=== PATIENT | male | born 1935 | race Caucasian/White ===

== ENCOUNTER 2020-01-23 07:14 | Outpatient (REF) | payer MEDICARE, SELFPAY ==
[2020-01-23 07:53] LABS: MANUAL DIFF FLAG NO
[2020-01-23 07:55] LABS: Basophils Absolute Auto 0.1 X10*3/uL (0.0-0.2); Eosinophils Absolute Auto 0.3 X10*3/uL (0.0-0.4); Hematocrit 37.2 % (42-52); Hemoglobin 12.2 g/dl (14.0-18.0); Imm Gran Abs Auto 0.04 X10*3/uL (0.00-0.03); Imm Gran Pct Auto 0.5 % (0.0-0.4); Lymphocytes Absolute Auto 2.7 X10*3/uL (1.2-4.9); Lymphocytes Percent Auto 35.4 % (20-40); Mean Corpuscular HGB Conc 32.8 g/dl (31.0-36.0); Mean Corpuscular Hemoglobin 29.8 pg (27.0-33.0); Mean Platelet Volume 9.2 fL (9.4-12.4); Monocytes Absolute Auto 0.5 X10*3/uL (0.1-1.2); Monocytes Percent Auto 6.7 % (2-11); Neutrophils Percent Auto 52.4 % (45-73); Platelet Count 255 X10*3/uL (160-400); Red Blood Count 4.09 X10*6/uL (4.60-5.80); Red Cell Distribution Width 12.6 % (11.0-16.0); White Blood Count 7.7 X10*3/uL (4.8-10.8)
[2020-01-23 08:09] LABS: Glucose Fasting 230 mg/dL (60-99)
[2020-01-23 08:14] LABS: Anion Gap 13 (12-20); Blood Urea Nitrogen 19 mg/dL (9-16); Calcium 8.8 mg/dL (8.4-10.2); Carbon Dioxide 28 mmol/L (22-29); Chloride 101 mmol/L (96-108); Estimated Glomerular Filt Rate > 60; Glucose Fasting 226 mg/dL (60-99); Potassium 4.3 mmol/l (3.3-5.1); Sodium 138 mmol/L (135-145)
[2020-01-23 08:18] LABS: Estimated Average Glucose 249 mg/dL; Hemoglobin A1c % 10.3 %
== END 2020-01-23 07:15 | disposition home or self-care (01) ==
LOC: HO.LAB 07:14
PROVIDERS: PCP Internal Medicine; Visit Provider Nurse Practitioner Family
DX: Z01.818 Encounter for other preprocedural examination (principal); E11.9 Type 2 diabetes mellitus without complications
CPT/HCPCS: 36415; 80048; 82947; 83036; 85025

== ENCOUNTER 2020-03-20 17:10 | Emergency (ER) | payer MEDICARE, SELFPAY ==
[2020-03-20 17:25] VITALS: BP 153/126; BP 200/120; PULSE 135; PULSE 87; RESP 18; TEMP 37.1; O2SAT 95; O2SAT 97; BMI 26.5
--- NOTE | 2020-03-20 17:30 | ECG_ITS ---
Test Reason : CHEST PAIN Blood Pressure : / mmHG Vent. Rate : 121 BPM Atrial Rate : 133 BPM P-R Int : 000 ms QRS Dur : 092 ms QT Int : 342 ms P-R-T Axes : 000 -47 065 degrees QTc Int : 485 ms Accelerated Junctional rhythm with frequent Premature ventricular complexes Left anterior fascicular block Cannot rule out Septal infarct , age undetermined Abnormal ECG No previous ECGs available Referred By: Aminata Roque Electronically Signed By:Domingo Fajardo
[2020-03-20 18:00] VITALS: BP 164/83; PULSE 89; RESP 18; O2SAT 98
--- NOTE | 2020-03-20 18:09 | XR_ITS ---
EXAMINATION: XR CHEST CLINICAL INFORMATION: Chest pain COMPARISON: None TECHNIQUE: 2 views of the chest were obtained. FINDINGS: Mild prominence of the cardiac silhouette. Tortuous thoracic aorta with atherosclerotic calcifications. No focal consolidation. No pleural effusion or pneumothorax. No acute osseous abnormality. XR/XR chest 2V IMPRESSION: Mild cardiomegaly. Lungs are clear without focal consolidation.
--- NOTE | 2020-03-20 18:30 | PC.NURSE ---
denies cp at this time. states that cp was resolved and radiated to neck when he did experience it. denies diaphoresis and sob,
[2020-03-20 18:48] VITALS: BP 158/81; PULSE 84; RESP 18; O2SAT 98
[2020-03-20 18:52] LABS: MANUAL DIFF FLAG NO
[2020-03-20 18:56] LABS: Basophils Absolute Auto 0.1 X10*3/uL (0.0-0.2); Basophils Percent Auto 0.6 % (0-2); Eosinophils Absolute Auto 0.1 X10*3/uL (0.0-0.4); Eosinophils Percent Auto 1.5 % (0-4); Hematocrit 34.6 % (42-52); Hemoglobin 11.4 g/dl (14.0-18.0); Imm Gran Abs Auto 0.03 X10*3/uL (0.00-0.03); Imm Gran Pct Auto 0.4 % (0.0-0.4); Lymphocytes Absolute Auto 1.2 X10*3/uL (1.2-4.9); Lymphocytes Percent Auto 15.6 % (20-40); Mean Corpuscular HGB Conc 32.9 g/dl (31.0-36.0); Mean Corpuscular Hemoglobin 30.6 pg (27.0-33.0); Mean Platelet Volume 9.2 fL (9.4-12.4); Monocytes Absolute Auto 0.6 X10*3/uL (0.1-1.2); Monocytes Percent Auto 7.6 % (2-11); Neutrophils Absolute Auto 5.9 X10*3/uL (2.0-8.3); Neutrophils Percent Auto 74.3 % (45-73); Platelet Count 208 X10*3/uL (160-400); Red Blood Count 3.72 X10*6/uL (4.60-5.80); Red Cell Distribution Width 12.9 % (11.0-16.0); White Blood Count 7.9 X10*3/uL (4.8-10.8)
--- NOTE | 2020-03-20 19:09 | ED.CHESTPAIN ---
HPI - Chest Pain General Chief Complaint: Chest Pain <Aminata Roque NP - Last Filed: 03/20/20 21:11> Stated Complaint: HYPERTENSION <Aminata Roque NP - Last Filed: 03/20/20 21:11> Time Seen by Provider: 03/20/20 18:08 <Aminata Roque NP - Last Filed: 03/20/20 21:11> Source: family, EMS and radiation therapist <Aminata Roque NP - Last Filed: 03/20/20 21:11> Mode of arrival: EMS <Aminata Roque NP - Last Filed: 03/20/20 21:11> Limitations: no limitations <Aminata Roque NP - Last Filed: 03/20/20 21:11> History of Present Illness HPI narrative: 84-year-old female with a past medical history of ALEX, hypertension, [id number] diabetes, high cholesterol here with complaints of chest pain which occurred 3 hours prior to arrival while at rest and was not associated with any nausea, vomiting, diaphoresis, shortness of breath, dizziness, headache. He does complain of having some associated neck pain. All of the symptoms are resolved and they only lasted several minutes. Per daughter the patient was noted to have very high blood pressures today throughout the day with systolic as high as 210. He has been medication compliant. No changes in medicines. <Aminata Roque NP - Last Filed: 03/20/20 21:11> MD complaint: chest pain <Aminata Roque NP - Last Filed: 03/20/20 21:11> Onset (ago): hour(s) <Aminata Roque NP - Last Filed: 03/20/20 21:11> Timing of current episode: episodic <BHAVIN Mcginnis Last Filed: 03/20/20 21:11> Prior episodes: No <Aminata Roque NP - Last Filed: 03/20/20 21:11> Onset: during rest <BHAVIN Mcginnis Last Filed: 03/20/20 21:11> Pain location: substernal <Aminata Roque NP - Last Filed: 03/20/20 21:11> Pain radiation: none <BHAVIN Mcginnis Last Filed: 03/20/20 21:11> Quality: sharp <Aminata Roque NP - Last Filed: 03/20/20 21:11> Related Data Home Medications: Home Medications Medication Instructions Recorded Confirmed ferrous sulfate 325 mg (65 mg 325 mg PO DAILY 01/07/20 03/20/20 iron) tablet lisinopril 20 mg tablet 20 mg PO DAILY 01/07/20 03/20/20 Previous Rx's Medication Instructions Recorded atorvastatin 20 mg tablet 20 mg PO DAILY #90 tab 01/11/20 metformin 500 mg tablet 500 mg PO BID #180 tab 01/11/20 <Aminata Roque NP - Last Filed: 03/20/20 21:11> Allergies/Adverse Reactions: Allergies Allergy/AdvReac Type Severity Reaction Status Date / Time penicillin G Allergy Unknown hives Verified 03/20/20 17:25 <Aminata oRque NP - Last Filed: 03/20/20 21:11> Review of Systems Review of Systems: Yes all other systems are reviewed and are negative <BHAVIN Mcginnis Last Filed: 03/20/20 21:11> Constitutional: Constitutional: Reports no additional constitutional complaints, Denies body ache(s), Denies chills, Denies fever(s), Denies headache(s) and Denies weakness <BHAVIN Mcginnis Last Filed: 03/20/20 21:11> Eyes: Eyes: Reports no additional eye complaints and Denies change in vision <BHAVIN Mcginnis Last Filed: 03/20/20 21:11> ENT: Reports system reviewed and no additional complaints, except as documented, Denies dizziness, Denies headache(s), Denies nasal congestion, Denies nasal discharge and Reports neck pain <BHAVIN Mcginnis Last Filed: 03/20/20 21:11> Cardiovascular: Cardiovascular: Reports no additional cardiovascular complaints, Reports chest pain, Denies leg edema and Denies dyspnea <BHAVIN Mcginnis Last Filed: 03/20/20 21:11> Respiratory: Respiratory: Reports no additional respiratory complaints, Denies cough and Denies dyspnea <Aminata Roque NP - Last Filed: 03/20/20 21:11> Gastrointestinal: Gastrointestinal: Reports no additional gastrointestinal complaints, Denies abdominal pain, Denies diarrhea, Denies nausea and Denies vomiting <Aminata Roque NP - Last Filed: 03/20/20 21:11> Genitourinary: Genitourinary: Denies urinary incontinence <Aminata Roque NP - Last Filed: 03/20/20 21:11> Musculoskeletal: Musculoskeletal: Reports no additional musculoskeletal complaints, Denies back pain, Denies arthralgias, Denies joint swelling, Reports neck pain, Denies numbness and Denies tingling <Aminata Roque NP - Last Filed: 03/20/20 21:11> Integumentary/Breasts: Skin/Breast: Reports system reviewed and no additional complaints, except as docu and Denies rash <Aminata Roque NP - Last Filed: 03/20/20 21:11> Neurologic: Reports system reviewed and no additional complaints, except as documented, Denies Abnormal speech present, Denies dizziness, Denies headache(s), Denies numbness, Denies tingling and Denies weakness <Aminata Roque NP - Last Filed: 03/20/20 21:11> [facility] Past Medical History Attestation statement: The following information was validated with the patient. <Aminata Roque NP - Last Filed: 03/20/20 21:11> Source: old records reviewed and nursing notes reviewed <Aminata Roque NP - Last Filed: 03/20/20 21:11> Medical History: Medical History (Updated 03/20/20 @ 19:12 by Aminata Roque NP) Diabetes High cholesterol Hypertension ALEX (iron deficiency anemia) Pre-op examination <Aminata Roque NP - Last Filed: 03/20/20 21:11> Surgical History: Surgical History History of hernia repair <Aminata Roque NP - Last Filed: 03/20/20 21:11> Family History Family History: Family History Father No problems noted. Mother No problems noted. <Aminata Roque NP - Last Filed: 03/20/20 21:11> Social History Social History: Social History Alcohol intake: never Smoked in Last 30 Days: No Use of substances other than those prescribed or required for medical reasons: No Advance Directives: No Advance Directives Information Provided: No <Aminata Roque NP - Last Filed: 03/20/20 21:11> Physical Exam Vital Signs: Vital Signs: Last Vital Signs Temp 98.2 F 03/20/20 21:38 Pulse 77 03/20/20 21:38 Resp 12 03/20/20 21:38 BP 169/80 H 03/20/20 21:38 Pulse Ox 98 03/20/20 21:38 Body Mass Index 26.5 <Aminata Roque NP - Last Filed: 03/20/20 21:11> Vital Signs: Last Vital Signs Temp 98.2 F 03/20/20 21:38 Pulse 77 03/20/20 21:38 Resp 12 03/20/20 21:38 BP 169/80 H 03/20/20 21:38 Pulse Ox 98 03/20/20 21:38 Body Mass Index 26.5 <Kris Best MD - Last Filed: 03/20/20 23:05> Const: General: cooperative, healthy appearing, comfortable and no acute distress <Aminata Roque NP - Last Filed: 03/20/20 21:11> Orientation/consciousness: patient oriented x3 <Aminata Roque NP - Last Filed: 03/20/20 21:11> Limitations: no limitations <Aminata Roque NP - Last Filed: 03/20/20 21:11> HENMT: Head: Yes normal to inspection <Aminata Roque NP - Last Filed: 03/20/20 21:11> Ears: hearing grossly normal bilaterally <Aminata Roque NP - Last Filed: 03/20/20 21:11> General nose exam: Normal external nose present <Aminata Roque NP - Last Filed: 03/20/20 21:11> Face and sinus: Yes normal facial exam <Aminata Roque NP - Last Filed: 03/20/20 21:11> Mouth: Normal oral and palatal mucosa present <Aminata Roque NP - Last Filed: 03/20/20 21:11> Throat: Yes posterior oropharynx normal <Aminata Roque [employer]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 - Last Filed: 03/20/20 21:11> Eyes: General: appearance normal, both eyes and all related structures <Aminata Roque NP - Last Filed: 03/20/20 21:11> Pupils: Equal, round and reactive pupils present <Aminata Roque NP - Last Filed: 03/20/20 21:11> Neck: Neck: Yes normal visual inspection <Aminata Roque NP - Last Filed: 03/20/20 21:11> Chest: Chest palpation & inspection: normal inspection of the chest <Aminata Roque NP - Last Filed: 03/20/20 21:11> Resp: Effort & Inspection: normal respiratory effort <Aminata Roque NP - Last Filed: 03/20/20 21:11> Auscultation: clear to auscultation bilaterally <Aminata Roque NP - Last Filed: 03/20/20 21:11> Cardio: Rate: regular rate <Aminata Roque NP - Last Filed: 03/20/20 21:11> Rhythm: regular rhythm <Aminata Roque NP - Last Filed: 03/20/20 21:11> Peripheral pulses: Peripheral pulses 2+ throughout <Aminata Roque NP - Last Filed: 03/20/20 21:11> GI: Inspection: Yes normal to inspection <Aminata Roque NP - Last Filed: 03/20/20 21:11> Palpation (GI): Soft to palpation and nontender <Aminata Roque NP - Last Filed: 03/20/20 21:11> Auscultation: normal bowel sounds <Aminata Roque NP - Last Filed: 03/20/20 21:11> Back/Spine/Pelvis: Thoracic/Lumbar Spine: thoracic and lumbar spine normal to inspection <Aminata Roque NP - Last Filed: 03/20/20 21:11> Skin: General skin exam: no rashes or lesions noted <Aminata Roque NP - Last Filed: 03/20/20 21:11> Neuro: General: patient oriented x3, no focal motor deficits and normal sensation to monofilament <Aminata Roque NP - Last Filed: 03/20/20 21:11> Cranial nerves: Yes Equal, round and reactive pupils present <Aminata Roque NP - Last Filed: 03/20/20 21:11> Cognition (Neuro): normal cognition <Aminata Roque NP - Last Filed: 03/20/20 21:11> Speech: No Abnormal speech present <Aminata Roque NP - Last Filed: 03/20/20 21:11> Gait exam (Neuro): Normal gait present <Aminata Roque NP - Last Filed: 03/20/20 21:11> Motor exam (neuro): 5/5 motor strength present throughout <Aminata Roque NP - Last Filed: 03/20/20 21:11> Extrem: General: Yes normal to inspection, Yes no pedal edema and Yes no calf tenderness <Aminata Roque NP - Last Filed: 03/20/20 21:11> Course Course Course Narrative: 84-year-old male with a past medical history of non-insulin diabetes, hypertension, hyperlipidemia here with episodic chest pain with radiating neck pain which lasted several seconds and self resolved several hours prior to arrival. Patient was noted to have a high blood pressure throughout the day today. On arrival he has no complaints and is feeling well. His EKG shows a rate of 121 with Q-waves and some poor R-wave progression which appear new when compared to previous. Will likely need admission. Will check labs, CXR and repeat EKG. 2030-labs show hyperglycemia 419 with no acidosis or gap and a negative acetone. Given 500 mL of normal saline and 5 units Of IV insulin. Magnesium 1.3, given 2G IV as replacement. Troponin 17.9. No chest pain. Plan for repeat 3 hour troponin. 2100-D/w with Dr Pride. At this time does not feel patient needs admission. Will discuss again with medicine team after repeat troponin. Sign out to Dr Best pending above <Aminata Roque NP - Last Filed: 03/20/20 21:11> MDM - Chest Pain MDM Narrative Medical decision making narrative: ACS, electrolyte abnormality, anemia, PE, pneumonia, hypertensive urgency <Aminata Roque NP - Last Filed: 03/20/20 21:11> Medical Records Data Attestation: I reviewed the patient's medical records. <Aminata Roque NP - Last Filed: 03/20/20 21:11> Lab Data Attestation: I reviewed the patient's lab results. <Aminata Roque NP - Last Filed: 03/20/20 21:11> Result diagrams: : 03/20/20 18:47 03/20/20 18:47 <Aminata Roque NP - Last Filed: 03/20/20 21:11> Labs: Lab Results 03/20/20 03/20/20 03/20/20 Range/Units 18:47 18:47 18:47 WBC 7.9 (4.8-10.8) X10*3/uL RBC 3.72 L (4.60-5.80) X10*6/uL Hgb 11.4 L (14.0-18.0) g/dl Hct 34.6 L (42-52) % MCV 93.0 (80-98) fL MCH 30.6 (27.0-33.0) pg MCHC 32.9 (31.0-36.0) g/dl RDW 12.9 (11.0-16.0) % Plt Count 208 (160-400) X10*3/uL MPV 9.2 L (9.4-12.4) fL Immature Gran % (Auto) 0.4 (0.0-0.4) % Neut % (Auto) 74.3 H (45-73) % Lymph % (Auto) 15.6 L (20-40) % [place] % (Auto) 7.6 (2-11) % Eos % (Auto) 1.5 (0-4) % Baso % (Auto) 0.6 (0-2) % Lymph # (Auto) 1.2 (1.2-4.9) X10*3/uL [place] # (Auto) 0.6 (0.1-1.2) X10*3/uL Eos # (Auto) 0.1 (0.0-0.4) X10*3/uL Baso # (Auto) 0.1 (0.0-0.2) X10*3/uL Abs Immat Gran (auto) 0.03 (0.00-0.03) X10*3/uL Absolute Neuts (auto) 5.9 (2.0-8.3) X10*3/uL Absolute Nucleated RBC 0.000 (0.0-0.012) X10*3/uL Nucleated RBC % (auto) 0.0 (0.0-0.2) /100WBC Hold Blue Top SEE NOTE Sodium 137 (135-145) mmol/L Potassium 4.8 (3.3-5.1) mmol/l Chloride 99 (96-108) mmol/L Carbon Dioxide 26 (22-29) mmol/L Anion Gap 17 (12-20) BUN 26 H (9-16) mg/dL Creatinine 1.26 (0.5-1.4) mg/dL Estim Creat Clear Calc 36.3 Estimated GFR 55 POC Glucose (60-115) mg/dL Random Glucose 419 H* (60-115) mg/dL Calcium 8.9 (8.4-10.2) mg/dL Magnesium 1.3 L* (1.6-2.6) mg/dL Total Bilirubin 0.5 (0.0-1.0) mg/dL Direct Bilirubin 0.2 (0.0-0.5) mg/dL AST 14 (5-37) U/L ALT 13 (0-40) U/L Alkaline Phosphatase 102 (39-117) U/L Troponin I High Sens (<3.5-35.0) ng/L B-Natriuretic Peptide (<100) pg/mL Total Protein 6.4 L (6.5-8.0) g/dL Albumin 3.8 (3.5-5.0) g/dL Acetone, Qual Negative (Negative) COVID-19 ([facility]) (Negative) COVID-19 Clin Com 03/20/20 03/20/20 03/20/20 Range/Units 18:47 18:47 20:59 WBC (4.8-10.8) X10*3/uL RBC (4.60-5.80) X10*6/uL Hgb (14.0-18.0) g/dl Hct (42-52) % MCV (80-98) fL MCH (27.0-33.0) pg MCHC (31.0-36.0) g/dl RDW (11.0-16.0) % Plt Count (160-400) X10*3/uL MPV (9.4-12.4) fL Immature Gran % (Auto) (0.0-0.4) % Neut % (Auto) (45-73) % Lymph % (Auto) (20-40) % [place] % (Auto) (2-11) % Eos % (Auto) (0-4) % Baso % (Auto) (0-2) % Lymph # (Auto) (1.2-4.9) X10*3/uL [place] # (Auto) (0.1-1.2) X10*3/uL Eos # (Auto) (0.0-0.4) X10*3/uL Baso # (Auto) (0.0-0.2) X10*3/uL Abs Immat Gran (auto) (0.00-0.03) X10*3/uL Absolute Neuts (auto) (2.0-8.3) X10*3/uL Absolute Nucleated RBC (0.0-0.012) X10*3/uL Nucleated RBC % (auto) (0.0-0.2) /100WBC Hold Blue Top Sodium (135-145) mmol/L Potassium (3.3-5.1) mmol/l Chloride (96-108) mmol/L Carbon Dioxide (22-29) mmol/L Anion Gap (12-20) BUN (9-16) mg/dL Creatinine (0.5-1.4) mg/dL Estim Creat Clear Calc Estimated GFR POC Glucose 295 H (60-115) mg/dL Random Glucose (60-115) mg/dL Calcium (8.4-10.2) mg/dL Magnesium (1.6-2.6) mg/dL Total Bilirubin (0.0-1.0) mg/dL Direct Bilirubin (0.0-0.5) mg/dL AST (5-37) U/L ALT (0-40) U/L Alkaline Phosphatase (39-117) U/L Troponin I High Sens 17.9 (<3.5-35.0) ng/L B-Natriuretic Peptide 189 H (<100) pg/mL Total Protein (6.5-8.0) g/dL Albumin (3.5-5.0) g/dL Acetone, Qual (Negative) COVID-19 ([facility]) Negative (Negative) COVID-19 Clin Com See Note 03/20/20 Range/Units 21:36 WBC (4.8-10.8) X10*3/uL RBC (4.60-5.80) X10*6/uL Hgb (14.0-18.0) g/dl Hct (42-52) % MCV (80-98) fL MCH (27.0-33.0) pg MCHC (31.0-36.0) g/dl RDW (11.0-16.0) % Plt Count (160-400) X10*3/uL MPV (9.4-12.4) fL Immature Gran % (Auto) (0.0-0.4) % Neut % (Auto) (45-73) % Lymph % (Auto) (20-40) % [place] % (Auto) (2-11) % Eos % (Auto) (0-4) % Baso % (Auto) (0-2) % Lymph # (Auto) (1.2-4.9) X10*3/uL [place] # (Auto) (0.1-1.2) X10*3/uL Eos # (Auto) (0.0-0.4) X10*3/uL Baso # (Auto) (0.0-0.2) X10*3/uL Abs Immat Gran (auto) (0.00-0.03) X10*3/uL Absolute Neuts (auto) (2.0-8.3) X10*3/uL Absolute Nucleated RBC (0.0-0.012) X10*3/uL Nucleated RBC % (auto) (0.0-0.2) /100WBC Hold Blue Top Sodium (135-145) mmol/L Potassium (3.3-5.1) mmol/l Chloride (96-108) mmol/L Carbon Dioxide (22-29) mmol/L Anion Gap (12-20) BUN (9-16) mg/dL Creatinine (0.5-1.4) mg/dL Estim Creat Clear Calc Estimated GFR POC Glucose (60-115) mg/dL Random Glucose (60-115) mg/dL Calcium (8.4-10.2) mg/dL Magnesium (1.6-2.6) mg/dL Total Bilirubin (0.0-1.0) mg/dL Direct Bilirubin (0.0-0.5) mg/dL AST (5-37) U/L ALT (0-40) U/L Alkaline Phosphatase (39-117) U/L Troponin I High Sens 19.7 (<3.5-35.0) ng/L B-Natriuretic Peptide (<100) pg/mL Total Protein (6.5-8.0) g/dL Albumin (3.5-5.0) g/dL Acetone, Qual (Negative) COVID-19 ([facility]) (Negative) COVID-19 Clin Com <Aminata Roque, [employer]PLE [employer]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 - Last Filed: 03/20/20 21:11> Lab Results 03/20/20 03/20/20 03/20/20 Range/Units 18:47 18:47 18:47 WBC 7.9 (4.8-10.8) X10*3/uL RBC 3.72 L (4.60-5.80) X10*6/uL Hgb 11.4 L (14.0-18.0) g/dl Hct 34.6 L (42-52) % MCV 93.0 (80-98) fL MCH 30.6 (27.0-33.0) pg MCHC 32.9 (31.0-36.0) g/dl RDW 12.9 (11.0-16.0) % Plt Count 208 (160-400) X10*3/uL MPV 9.2 L (9.4-12.4) fL Immature Gran % (Auto) 0.4 (0.0-0.4) % Neut % (Auto) 74.3 H (45-73) % Lymph % (Auto) 15.6 L (20-40) % [place] % (Auto) 7.6 (2-11) % Eos % (Auto) 1.5 (0-4) % Baso % (Auto) 0.6 (0-2) % Lymph # (Auto) 1.2 (1.2-4.9) X10*3/uL [place] # (Auto) 0.6 (0.1-1.2) X10*3/uL Eos # (Auto) 0.1 (0.0-0.4) X10*3/uL Baso # (Auto) 0.1 (0.0-0.2) X10*3/uL Abs Immat Gran (auto) 0.03 (0.00-0.03) X10*3/uL Absolute Neuts (auto) 5.9 (2.0-8.3) X10*3/uL Absolute Nucleated RBC 0.000 (0.0-0.012) X10*3/uL Nucleated RBC % (auto) 0.0 (0.0-0.2) /100WBC Hold Blue Top SEE NOTE Sodium 137 (135-145) mmol/L Potassium 4.8 (3.3-5.1) mmol/l Chloride 99 (96-108) mmol/L Carbon Dioxide 26 (22-29) mmol/L Anion Gap 17 (12-20) BUN 26 H (9-16) mg/dL Creatinine 1.26 (0.5-1.4) mg/dL Estim Creat Clear Calc 36.3 Estimated GFR 55 POC Glucose (60-115) mg/dL Random Glucose 419 H* (60-115) mg/dL Calcium 8.9 (8.4-10.2) mg/dL Magnesium 1.3 L* (1.6-2.6) mg/dL Total Bilirubin 0.5 (0.0-1.0) mg/dL Direct Bilirubin 0.2 (0.0-0.5) mg/dL AST 14 (5-37) U/L ALT 13 (0-40) U/L Alkaline Phosphatase 102 (39-117) U/L Troponin I High Sens (<3.5-35.0) ng/L B-Natriuretic Peptide (<100) pg/mL Total Protein 6.4 L (6.5-8.0) g/dL Albumin 3.8 (3.5-5.0) g/dL Acetone, Qual Negative (Negative) COVID-19 ([facility]) (Negative) COVID-19 Clin Com 03/20/20 03/20/20 03/20/20 Range/Units 18:47 18:47 20:59 WBC (4.8-10.8) X10*3/uL RBC (4.60-5.80) X10*6/uL Hgb (14.0-18.0) g/dl Hct (42-52) % MCV (80-98) fL MCH (27.0-33.0) pg MCHC (31.0-36.0) g/dl RDW (11.0-16.0) % Plt Count (160-400) X10*3/uL MPV (9.4-12.4) fL Immature Gran % (Auto) (0.0-0.4) % Neut % (Auto) (45-73) % Lymph % (Auto) (20-40) % [place] % (Auto) (2-11) % Eos % (Auto) (0-4) % Baso % (Auto) (0-2) % Lymph # (Auto) (1.2-4.9) X10*3/uL [place] # (Auto) (0.1-1.2) X10*3/uL Eos # (Auto) (0.0-0.4) X10*3/uL Baso # (Auto) (0.0-0.2) X10*3/uL Abs Immat Gran (auto) (0.00-0.03) X10*3/uL Absolute Neuts (auto) (2.0-8.3) X10*3/uL Absolute Nucleated RBC (0.0-0.012) X10*3/uL Nucleated RBC % (auto) (0.0-0.2) /100WBC Hold Blue Top Sodium (135-145) mmol/L Potassium (3.3-5.1) mmol/l Chloride (96-108) mmol/L Carbon Dioxide (22-29) mmol/L Anion Gap (12-20) BUN (9-16) mg/dL Creatinine (0.5-1.4) mg/dL Estim Creat Clear Calc Estimated GFR POC Glucose 295 H (60-115) mg/dL Random Glucose (60-115) mg/dL Calcium (8.4-10.2) mg/dL Magnesium (1.6-2.6) mg/dL Total Bilirubin (0.0-1.0) mg/dL Direct Bilirubin (0.0-0.5) mg/dL AST (5-37) U/L ALT (0-40) U/L Alkaline Phosphatase (39-117) U/L Troponin I High Sens 17.9 (<3.5-35.0) ng/L B-Natriuretic Peptide 189 H (<100) pg/mL Total Protein (6.5-8.0) g/dL Albumin (3.5-5.0) g/dL Acetone, Qual (Negative) COVID-19 ([facility]) Negative (Negative) COVID-19 Clin Com See Note 03/20/20 Range/Units 21:36 WBC (4.8-10.8) X10*3/uL RBC (4.60-5.80) X10*6/uL Hgb (14.0-18.0) g/dl Hct (42-52) % MCV (80-98) fL MCH (27.0-33.0) pg MCHC (31.0-36.0) g/dl RDW (11.0-16.0) % Plt Count (160-400) X10*3/uL MPV (9.4-12.4) fL Immature Gran % (Auto) (0.0-0.4) % Neut % (Auto) (45-73) % Lymph % (Auto) (20-40) % [place] % (Auto) (2-11) % Eos % (Auto) (0-4) % Baso % (Auto) (0-2) % Lymph # (Auto) (1.2-4.9) X10*3/uL [place] # (Auto) (0.1-1.2) X10*3/uL Eos # (Auto) (0.0-0.4) X10*3/uL Baso # (Auto) (0.0-0.2) X10*3/uL Abs Immat Gran (auto) (0.00-0.03) X10*3/uL Absolute Neuts (auto) (2.0-8.3) X10*3/uL Absolute Nucleated RBC (0.0-0.012) X10*3/uL Nucleated RBC % (auto) (0.0-0.2) /100WBC Hold Blue Top Sodium (135-145) mmol/L Potassium (3.3-5.1) mmol/l Chloride (96-108) mmol/L Carbon Dioxide (22-29) mmol/L Anion Gap (12-20) BUN (9-16) mg/dL Creatinine (0.5-1.4) mg/dL Estim Creat Clear Calc Estimated GFR POC Glucose (60-115) mg/dL Random Glucose (60-115) mg/dL Calcium (8.4-10.2) mg/dL Magnesium (1.6-2.6) mg/dL Total Bilirubin (0.0-1.0) mg/dL Direct Bilirubin (0.0-0.5) mg/dL AST (5-37) U/L ALT (0-40) U/L Alkaline Phosphatase (39-117) U/L Troponin I High Sens 19.7 (<3.5-35.0) ng/L B-Natriuretic Peptide (<100) pg/mL Total Protein (6.5-8.0) g/dL Albumin (3.5-5.0) g/dL Acetone, Qual (Negative) COVID-19 ([facility]) (Negative) COVID-19 Clin Com <Kris Best MD - Last Filed: 03/20/20 23:05> Imaging Data Chest x-ray: Attestation: I personally reviewed and interpreted this imaging study as follows: <Aminata Roque NP - Last Filed: 03/20/20 21:11> Radiologist's impression: EXAMINATION: XR CHEST CLINICAL INFORMATION: Chest pain COMPARISON: None TECHNIQUE: 2 views of the chest were obtained. FINDINGS: Mild prominence of the cardiac silhouette. Tortuous thoracic aorta with atherosclerotic calcifications. No focal consolidation. No pleural effusion or pneumothorax. No acute osseous abnormality. XR/XR chest 2V IMPRESSION: Mild cardiomegaly. Lungs are clear without focal consolidation. <Aminata Roque NP - Last Filed: 03/20/20 21:11> ECG Data ECG #1: Attestation: I personally reviewed and interpreted this ECG as follows: <Aminata Roque NP - Last Filed: 03/20/20 21:11> ECG interpretation date: 03/20/20 <Aminata Roque NP - Last Filed: 03/20/20 21:11> ECG interpretation time: 17:20 <Aminata Roque NP - Last Filed: 03/20/20 21:11> Interpretation: Accelerated junctional rhythm with frequent PVCs, rate of 121, normal QRS. QTC prolonged at 485. Q-waves noted in lead 2 and AVF. Poor R-wave progression in V1 V2 and V3 Repeat EKG. 2012 shows rate now 108, however EKG unchanged <Aminata Roque NP - Last Filed: 03/20/20 21:11> Discharge Plan Discharge Prescriptions: No Action atorvastatin 20 mg tablet 20 mg PO DAILY Qty: 90 RF: 8 metformin 500 mg tablet 500 mg PO BID Qty: 180 RF: 8 lisinopril 20 mg tablet 20 mg PO DAILY RF: 0 ferrous sulfate 325 mg (65 mg iron) tablet 325 mg PO DAILY RF: 0 <Aminata Roque NP - Last Filed: 03/20/20 21:11>
[2020-03-20 19:11] LABS: COVID-19 Test Negative (Negative)
[2020-03-20 19:17] LABS: Alanine Aminotransferase 13 U/L (0-40); Albumin Level 3.8 g/dL (3.5-5.0); Alkaline Phosphatase 102 U/L (39-117); Anion Gap 17 (12-20); Aspartate Amino Transferase 14 U/L (5-37); Bilirubin Direct 0.2 mg/dL (0.0-0.5); Bilirubin Total 0.5 mg/dL (0.0-1.0); Blood Urea Nitrogen 26 mg/dL (9-16); Calcium 8.9 mg/dL (8.4-10.2); Carbon Dioxide 26 mmol/L (22-29); Chloride 99 mmol/L (96-108); Creatinine Clr Calc Pharmacy 36.3; Estimated Glomerular Filt Rate 55; Glucose Random 419 mg/dL (60-115); Magnesium 1.3 mg/dL (1.6-2.6); Potassium 4.8 mmol/l (3.3-5.1); Sodium 137 mmol/L (135-145); Total Protein 6.4 g/dL (6.5-8.0)
[2020-03-20 19:20] LABS: Troponin-I High Sensitivity 17.9 ng/L (<3.5-35.0)
[2020-03-20 19:30] LABS: B Type Natriuretic Peptide 189 pg/mL (<100)
[2020-03-20 19:32] LABS: Acetone, serum QL Negative (Negative)
--- NOTE | 2020-03-20 19:50 | ECG_ITS ---
Test Reason : REPEAT Blood Pressure : / mmHG Vent. Rate : 108 BPM Atrial Rate : 108 BPM P-R Int : 000 ms QRS Dur : 094 ms QT Int : 376 ms P-R-T Axes : 000 -48 072 degrees QTc Int : 503 ms Accelerated Junctional rhythm with occasional Premature ventricular complexes Left anterior fascicular block Septal infarct , age undetermined Abnormal ECG When compared to the previous EKG of No significant changes seen Referred By: Aminata Roque Electronically Signed By:Domingo Fajardo
[2020-03-20] MEDS: 0.9 % Sodium Chloride 500 ML 999 ML IV (19:51)
[2020-03-20] MEDS: Magnesium Sulfate/H2O 2 GM/50 ML PIGGYBACK IV (19:51)
[2020-03-20 19:59] VITALS: BP 142/68; PULSE 75; RESP 18; O2SAT 96
--- NOTE | 2020-03-20 20:01 | PC.NURSE ---
daughter update via phone. will call back in the am for an update.
[2020-03-20] MEDS: Insulin Regular, Human 100 UNIT/ML 3 ML VIAL IVPUSH (20:07)
[2020-03-20 21:06] LABS: Glucose, Whole Blood 295 mg/dL (60-115)
--- NOTE | 2020-03-20 21:11 | ECG_ITS ---
Test Reason : REPEAT Blood Pressure : / mmHG Vent. Rate : 079 BPM Atrial Rate : 079 BPM P-R Int : 226 ms QRS Dur : 092 ms QT Int : 436 ms P-R-T Axes : 089 -46 072 degrees QTc Int : 499 ms Sinus rhythm with 1st degree A-V block with frequent Premature ventricular complexes Left anterior fascicular block Septal infarct , age undetermined Abnormal ECG When compared to the previous EKG of Sinus rhythm has replaced the junctional rhythm Referred By: Kris Best Electronically Signed By:Domingo Fajardo
[2020-03-20 21:38] VITALS: BP 169/80; PULSE 77; RESP 12; TEMP 36.8; O2SAT 98
[2020-03-20 22:24] LABS: Troponin-I High Sensitivity 19.7 ng/L (<3.5-35.0)
--- NOTE | 2020-03-20 23:05 | ED.CHESTPAIN ---
HPI - Chest Pain General Chief Complaint: Chest Pain Stated Complaint: HYPERTENSION Time Seen by Provider: 03/20/20 18:08 Source: family, EMS and form designer Mode of arrival: EMS Limitations: no limitations History of Present Illness HPI narrative: This is an addendum to Aminata Zambrano's note. This patient was managed by Leonela and myself and I assumed care for the patient at 9:00 p.m. pending the patient's repeat troponin. The patient presented with elevated blood pressure and chest pain that radiated to the neck, lasting minutes. The patient initial EKG revealed a junctional rhythm with a rate of 121. Repeat EKG at 8:13 p.m. showed improvement and the repeat EKG at 9:24 p.m. showed a sinus rhythm with a first-degree AV block with a TN interval of 226 milliseconds, prolonged QTC of 499 milliseconds. The patient's initial troponin was 17.2 which was detectable but not elevated. 3 hour troponin was 19.7 which again is detectable but not elevated. Given these laboratory findings, I do not think the patient has had acute myocardial injury. The patient did develop some agitation at 11:00 p.m. and was given Ativan 0.5 mg orally. I did discuss the patient's presentation and findings with the patient's daughter, Piedad Holman and the patient will be discharged home. Pain location: substernal Quality: sharp Related Data Home Medications Medication Instructions Recorded Confirmed ferrous sulfate 325 mg (65 mg 325 mg PO DAILY 01/07/20 03/20/20 iron) tablet lisinopril 20 mg tablet 20 mg PO DAILY 01/07/20 03/20/20 Previous Rx's Medication Instructions Recorded atorvastatin 20 mg tablet 20 mg PO DAILY #90 tab 01/11/20 metformin 500 mg tablet 500 mg PO BID #180 tab 01/11/20 Allergies Allergy/AdvReac Type Severity Reaction Status Date / Time penicillin G Allergy Unknown hives Verified 03/20/20 17:25 [facility] Past Medical History Medical History (Updated 03/20/20 @ 23:12 by Kris Best MD) Diabetes High cholesterol Hypertension ALEX (iron deficiency anemia) Pre-op examination Surgical History History of hernia repair Family History Family History Father No problems noted. Mother No problems noted. Social History Social History Alcohol intake: never Smoked in Last 30 Days: No Use of substances other than those prescribed or required for medical reasons: No Advance Directives: No Advance Directives Information Provided: No Physical Exam Vital Signs: Vital Signs: Last Vital Signs Temp 98.2 F 03/20/20 21:38 Pulse 77 03/20/20 21:38 Resp 12 03/20/20 21:38 BP 169/80 H 03/20/20 21:38 Pulse Ox 98 03/20/20 21:38 Body Mass Index 26.5 MDM - Chest Pain Lab Data Result diagrams: 03/20/20 18:47 03/20/20 18:47 Labs: Lab Results 03/20/20 03/20/20 03/20/20 Range/Units 18:47 18:47 18:47 WBC 7.9 (4.8-10.8) X10*3/uL RBC 3.72 L (4.60-5.80) X10*6/uL Hgb 11.4 L (14.0-18.0) g/dl Hct 34.6 L (42-52) % MCV 93.0 (80-98) fL MCH 30.6 (27.0-33.0) pg MCHC 32.9 (31.0-36.0) g/dl RDW 12.9 (11.0-16.0) % Plt Count 208 (160-400) X10*3/uL MPV 9.2 L (9.4-12.4) fL Immature Gran % (Auto) 0.4 (0.0-0.4) % Neut % (Auto) 74.3 H (45-73) % Lymph % (Auto) 15.6 L (20-40) % [place] % (Auto) 7.6 (2-11) % Eos % (Auto) 1.5 (0-4) % Baso % (Auto) 0.6 (0-2) % Lymph # (Auto) 1.2 (1.2-4.9) X10*3/uL [place] # (Auto) 0.6 (0.1-1.2) X10*3/uL Eos # (Auto) 0.1 (0.0-0.4) X10*3/uL Baso # (Auto) 0.1 (0.0-0.2) X10*3/uL Abs Immat Gran (auto) 0.03 (0.00-0.03) X10*3/uL Absolute Neuts (auto) 5.9 (2.0-8.3) X10*3/uL Absolute Nucleated RBC 0.000 (0.0-0.012) X10*3/uL Nucleated RBC % (auto) 0.0 (0.0-0.2) /100WBC Hold Blue Top SEE NOTE Sodium 137 (135-145) mmol/L Potassium 4.8 (3.3-5.1) mmol/l Chloride 99 (96-108) mmol/L Carbon Dioxide 26 (22-29) mmol/L Anion Gap 17 (12-20) BUN 26 H (9-16) mg/dL Creatinine 1.26 (0.5-1.4) mg/dL Estim Creat Clear Calc 36.3 Estimated GFR 55 POC Glucose (60-115) mg/dL Random Glucose 419 H* (60-115) mg/dL Calcium 8.9 (8.4-10.2) mg/dL Magnesium 1.3 L* (1.6-2.6) mg/dL Total Bilirubin 0.5 (0.0-1.0) mg/dL Direct Bilirubin 0.2 (0.0-0.5) mg/dL AST 14 (5-37) U/L ALT 13 (0-40) U/L Alkaline Phosphatase 102 (39-117) U/L Troponin I High Sens (<3.5-35.0) ng/L B-Natriuretic Peptide (<100) pg/mL Total Protein 6.4 L (6.5-8.0) g/dL Albumin 3.8 (3.5-5.0) g/dL Acetone, Qual Negative (Negative) COVID-19 ([facility]) (Negative) COVID-19 Clin Com 03/20/20 03/20/20 03/20/20 Range/Units 18:47 18:47 20:59 WBC (4.8-10.8) X10*3/uL RBC (4.60-5.80) X10*6/uL Hgb (14.0-18.0) g/dl Hct (42-52) % MCV (80-98) fL MCH (27.0-33.0) pg MCHC (31.0-36.0) g/dl RDW (11.0-16.0) % Plt Count (160-400) X10*3/uL MPV (9.4-12.4) fL Immature Gran % (Auto) (0.0-0.4) % Neut % (Auto) (45-73) % Lymph % (Auto) (20-40) % [place] % (Auto) (2-11) % Eos % (Auto) (0-4) % Baso % (Auto) (0-2) % Lymph # (Auto) (1.2-4.9) X10*3/uL [place] # (Auto) (0.1-1.2) X10*3/uL Eos # (Auto) (0.0-0.4) X10*3/uL Baso # (Auto) (0.0-0.2) X10*3/uL Abs Immat Gran (auto) (0.00-0.03) X10*3/uL Absolute Neuts (auto) (2.0-8.3) X10*3/uL Absolute Nucleated RBC (0.0-0.012) X10*3/uL Nucleated RBC % (auto) (0.0-0.2) /100WBC Hold Blue Top Sodium (135-145) mmol/L Potassium (3.3-5.1) mmol/l Chloride (96-108) mmol/L Carbon Dioxide (22-29) mmol/L Anion Gap (12-20) BUN (9-16) mg/dL Creatinine (0.5-1.4) mg/dL Estim Creat Clear Calc Estimated GFR POC Glucose 295 H (60-115) mg/dL Random Glucose (60-115) mg/dL Calcium (8.4-10.2) mg/dL Magnesium (1.6-2.6) mg/dL Total Bilirubin (0.0-1.0) mg/dL Direct Bilirubin (0.0-0.5) mg/dL AST (5-37) U/L ALT (0-40) U/L Alkaline Phosphatase (39-117) U/L Troponin I High Sens 17.9 (<3.5-35.0) ng/L B-Natriuretic Peptide 189 H (<100) pg/mL Total Protein (6.5-8.0) g/dL Albumin (3.5-5.0) g/dL Acetone, Qual (Negative) COVID-19 ([facility]) Negative (Negative) COVID-19 Clin Com See Note 03/20/20 Range/Units 21:36 WBC (4.8-10.8) X10*3/uL RBC (4.60-5.80) X10*6/uL Hgb (14.0-18.0) g/dl Hct (42-52) % MCV (80-98) fL MCH (27.0-33.0) pg MCHC (31.0-36.0) g/dl RDW (11.0-16.0) % Plt Count (160-400) X10*3/uL MPV (9.4-12.4) fL Immature Gran % (Auto) (0.0-0.4) % Neut % (Auto) (45-73) % Lymph % (Auto) (20-40) % [place] % (Auto) (2-11) % Eos % (Auto) (0-4) % Baso % (Auto) (0-2) % Lymph # (Auto) (1.2-4.9) X10*3/uL [place] # (Auto) (0.1-1.2) X10*3/uL Eos # (Auto) (0.0-0.4) X10*3/uL Baso # (Auto) (0.0-0.2) X10*3/uL Abs Immat Gran (auto) (0.00-0.03) X10*3/uL Absolute Neuts (auto) (2.0-8.3) X10*3/uL Absolute Nucleated RBC (0.0-0.012) X10*3/uL Nucleated RBC % (auto) (0.0-0.2) /100WBC Hold Blue Top Sodium (135-145) mmol/L Potassium (3.3-5.1) mmol/l Chloride (96-108) mmol/L Carbon Dioxide (22-29) mmol/L Anion Gap (12-20) BUN (9-16) mg/dL Creatinine (0.5-1.4) mg/dL Estim Creat Clear Calc Estimated GFR POC Glucose (60-115) mg/dL Random Glucose (60-115) mg/dL Calcium (8.4-10.2) mg/dL Magnesium (1.6-2.6) mg/dL Total Bilirubin (0.0-1.0) mg/dL Direct Bilirubin (0.0-0.5) mg/dL AST (5-37) U/L ALT (0-40) U/L Alkaline Phosphatase (39-117) U/L Troponin I High Sens 19.7 (<3.5-35.0) ng/L B-Natriuretic Peptide (<100) pg/mL Total Protein (6.5-8.0) g/dL Albumin (3.5-5.0) g/dL Acetone, Qual (Negative) COVID-19 ([facility]) (Negative) COVID-19 Clin Com Discharge Plan Discharge Clinical Impression: Chest pain Qualifiers: Chest pain type: unspecified Qualified Code(s): R07.9 - Chest pain, unspecified Hypertension Qualifiers: Hypertension type: unspecified Qualified Code(s): I10 - Essential (primary) hypertension Patient Disposition: Home, Self-Care Instructions: Chest Pain (ED) Additional Instructions: Your blood work initially revealed an elevated glucose of 419, we treated you with fluids and insulin in your glucose improved at the time of discharge. Your EKG initially revealed a very fast heart rate but this improved after the above treatment. Your blood work was otherwise unremarkable except for a detectable troponin which did not change after 3 hours. This is encouraging and suggest that she did not have a heart attack today. Continue taking your medications as prescribed by your doctor. Follow-up with your doctor in 2 days. Please return to the emergency department if your symptoms get worse or if you develop any symptoms that are concerning to you. Prescriptions: No Action atorvastatin 20 mg tablet 20 mg PO DAILY Qty: 90 RF: 8 metformin 500 mg tablet 500 mg PO BID Qty: 180 RF: 8 lisinopril 20 mg tablet 20 mg PO DAILY RF: 0 ferrous sulfate 325 mg (65 mg iron) tablet 325 mg PO DAILY RF: 0
[2020-03-20] MEDS: LORazepam 0.5 MG TABLET PO (23:08)
--- NOTE | 2020-03-20 23:12 | PC.NURSE ---
pt began to become confused and fidgitty aprox 30 minutes ago. md was aware and ativan iv ordered. inthe meantime patient removed his IV, oracle financials developer, and clothing. pt redirectable and new iv established and wrapped by this rn. pt was medicated wth po ativan to enable him to cooperate with plan of care. daughters wanred that he might become anxious overnight in the ED. Pt awaits admission.
[2020-03-20 23:21] VITALS: BP 106/86; PULSE 100; RESP 18; TEMP 37; O2SAT 96
--- NOTE | 2020-03-20 23:31 | PC.NURSE ---
daughter called with help from digital media sales consultant.
== END 2020-03-20 23:53 | disposition home or self-care (01) ==
PROVIDERS: Nurse Practitioner Family; Emergency Provider Emergency Medicine Emergency Medical Services
DX: R07.9 Chest pain, unspecified (principal); I10 Essential (primary) hypertension; M54.2 Cervicalgia; Z79.899 Other long term (current) drug therapy; Z20.822 Contact with and (suspected) exposure to COVID-19
CPT/HCPCS: 36415; 71046; 80048; 80076; 82009; 82947; 83735; 83880; 84484; 85025; 87635; 93005; 96365; 96366; 96375; 99284; J3475

== ENCOUNTER 2020-10-22 07:55 | Outpatient (REF) | payer MEDICARE, OTHER, SELFPAY ==
[2020-10-22 09:40] LABS: Cholesterol 122 mg/dL; HDL Cholesterol 36 mg/dL; LDL Cholesterol Calculated 68 mg/dl; Triglycerides 90 mg/dL
== END 2020-10-22 07:56 | disposition home or self-care (01) ==
LOC: HO.LAB 07:55
PROVIDERS: PCP Internal Medicine; Visit Provider Internal Medicine
DX: E11.9 Type 2 diabetes mellitus without complications (principal)
CPT/HCPCS: 36415; 80061